=== PATIENT | male | born 1960 | race Caucasian/White ===

== ENCOUNTER → 2016-12-13 | Outpatient (CLI) | payer OTHER ==
[~2016-12-13] MED LIST: /CLON1TA PO; AMLO5TAB2 PO; ASPI81TA83 PO; COZA50TA18 PO; DIOVAN PO; GABA100C PO; IBUP80TA PO; METO50TA2 PO; OMEP20TA7 PO; OMEP40CA2 PO; PERC5TAB8 OR; SIMV20TA2 PO; SPORANOX PO; ULTR50TA PO
--- NOTE | 2016-12-13 13:16 | REP ---
LEFT ANKLE SERIES: Five views. HISTORY: Pain after injury. FINDINGS: Five views of the left ankle demonstrate an intact ankle mortise. No fracture or subluxation is seen. There is mild midfoot spurring. IMPRESSION: No fracture seen. Signed by J Luis Pozo MD 12/13/2016 02:55 P
--- NOTE | 2016-12-13 13:20 | REP ---
Left foot series: Four views. History: Pain. Findings: Four views of the left foot demonstrate no evidence of fracture or subluxation. No erosive changes seen. There are small foci of opaque debris projecting along the volar and lateral aspect of the soft tissues of the distal phalanx of the great toe either on the skin or just beneath it. This requires correlation clinically. No other change from comparison radiographs April 28, 2011. Impression: Negative left foot radiographs. There is some opaque debris superimposed on or just beneath the skin of the volar and lateral aspect of the distal phalanx of the great toe. Signed by J Luis Pozo MD 12/13/2016 02:56 P
--- NOTE | 2016-12-13 13:24 | REP ---
LEFT TIB/FIB SERIES: Four views. HISTORY: Pain in the left knee and lower leg after an injury. FINDINGS: Four views of the left tib/fib demonstrate patellar spurring. There is some dystrophic calcification in the posterolateral left calf. There is no evidence of fracture or periosteal reaction. IMPRESSION: No acute bony abnormality. Signed by J Luis Pozo MD 12/13/2016 02:56 P
--- NOTE | 2016-12-13 13:41 | REP ---
LEFT KNEE SERIES: Five views. HISTORY: Pain and injury. FINDINGS: Five views of the left knee demonstrate medial and patellofemoral spur formation. There is evidence of joint effusion. There is minimal spur formation laterally. There is no evidence of fracture. IMPRESSION: Three compartment osteoarthritic spurring mild in degree. Swelling in the suprapatellar bursa region consistent with a joint effusion. No fracture seen. Signed by J Luis Pozo MD 12/13/2016 02:57 P
== END ==
LOC: M LRY 12:06
PROVIDERS: ATTEND Nurse Practitioner Family
DX: S99.912A Unspecified injury of left ankle, initial encounter (principal); S89.92XA Unspecified injury of left lower leg, initial encounter; S90.452A Superficial foreign body, left great toe, initial encounter; M25.762 Osteophyte, left knee; X58.XXXA Exposure to other specified factors, initial encounter; Y92.9 Unspecified place or not applicable; Y93.9 Activity, unspecified; Y99.9 Unspecified external cause status

== ENCOUNTER → 2018-01-11 | Outpatient (CLI) | payer OTHER | LOC: M CARPUL 13:44 | DX: R91.8 Other nonspecific abnormal finding of lung field (principal); R06.02 Shortness of breath | CPT/HCPCS: 94060 ==

== ENCOUNTER 2018-06-27 06:12 | Day surgery (SDC) | payer OTHER ==
[~2018-06-27] VITALS: Ht 177.8 cm; Wt 93.9 kg
[~2018-06-27 06:12] MED LIST changes: +ALLO100T PO; +AMLO5TAB6 PO; +ASPI81TA85 PO; +GABA600T4 PO; +LOSA25TA14 PO; +LR 1,000 ML IV ONE; +NEUR600T PO; +OMEP10CASR PO; +OMEP20CA3 PO; +SM A1TAB PO; +VALS1TAB46 PO
[2018-06-27] MEDS ORDERED: BUPIVACAINE HCL 0.5% 10 ML VIAL As Ordered ONE (07:16)
[2018-06-27] MEDS ORDERED: LIDOCAINE 1% MDV 20ML VIAL As Ordered ONE (07:16)
[2018-06-27] MEDS ORDERED: ONDANSETRON 4MG/2ML VIAL (J2405) As Ordered ONE (07:50)
[2018-06-27] MEDS ORDERED: dexameTHASONE 4 MG/ML 1ML VIAL (J1100) As Ordered ONE ×2 (07:50→08:02)
[2018-06-27] MEDS ORDERED: LIDOCAINE 2% INJ 100 MG/5 ML SDV (FOR ANES.) As Ordered ONE (07:50)
[2018-06-27] MEDS ORDERED: PROPOFOL 200 MG/20 ML VIAL As Ordered ONE ×2 (07:50→09:11)
[2018-06-27] MEDS ORDERED: fentaNYL 100 MCG/2 ML INJECTION (J3010) As Ordered ONE (07:54)
[2018-06-27] MEDS ORDERED: MIDAZOLAM INJ 2 MG/2 ML VIAL (J2250) As Ordered ONE (07:57)
[2018-06-27] MEDS ORDERED: ePHEDrine SULFATE 25 MG/5 ML(5MG/ML) SYRINGE As Ordered ONE (07:59)
[2018-06-27] MEDS ORDERED: HYDR-3713 PO (09:26)
[2018-06-27 09:55] VITALS: BP 130/80
--- NOTE | 2018-06-27 10:03 | RO ---
DATE OF PROCEDURE: 06/27/2018 PREOPERATIVE DIAGNOSIS: Left plantar soft tissue mass. POSTOPERATIVE DIAGNOSIS: Left plantar soft tissue mass. PROCEDURE: Left foot plantar soft tissue mass excision with local flap closure. SURGEON: Crow Aguilar DPM FARM BOSS: None. ANESTHESIA: Monitored anesthesia care (MAC). Preop injection of 13 mL of 1:1 mixture of 1% lidocaine plain and 0.5% Marcaine plain. ESTIMATED BLOOD LOSS: Minimal. MATERIALS: #3-0 nylon. INJECTION: 1 mL of Decadron 4 mg/mL. SPECIMEN: Left foot cyst. COMPLICATIONS: None. CONDITION: Stable. Aayush Vines is a 58-year-old male who presents with plantar soft tissue mass of his left foot who presents today for surgical excision. The patient's site and side were identified and marked in the preop holding area. Consent was reviewed and obtained. All risks, complications and alternatives to the procedure were explained to the patient in detail and all questions were answered. PROCEDURE: The patient was brought to the operating room and placed on the operating room table in supine position. Monitored anesthesia care was delivered by the anesthesia team. Preoperative injection of 13 mL of 1:1 mixture of 1% lidocaine and 0.5% Marcaine plain were injected to the left foot. The left foot was prepped and draped in a normal sterile fashion. The patient received Ancef properatively. A tourniquet was applied to the let ankle and inflated to 250 mmHg. The cyst was located in the plantar aspect of the left arch, measured approximately 1 cm in diameter. An elliptical incision was made with approximately 2 mm margins surrounding this cyst. This was carried through with a 15 blade. The inferior portion of this cyst apparently had a stalk arising from the plantar fascia. This was excised with tenotomy scissors and the specimen was sent off for pathology identification. The site was irrigated with normal saline. No further cyst tissue was noted. Due to the size of the cyst and the rigidity of the plantar tissue, flap closure was necessary. A Z-style flap closure was performed, rotating local tissue for wound closure. This was performed with #3-0 nylon. Sterile dressing was applied. Tourniquet was deflated. The patient was brought to postanesthesia care unit (PACU) with vital signs stable and neurovascular status intact. He will be non-weightbearing. He will follow-up in the office in two days.
== END 2018-06-27 10:00 | disposition home or self-care (01) ==
LOC: M SDC 06:12
PROVIDERS: ATTEND Podiatrist Foot & Ankle Surgery
DX: D36.13 Benign neoplasm of peripheral nerves and autonomic nervous system of lower limb, including hip (principal); I10 Essential (primary) hypertension; I25.119 Atherosclerotic heart disease of native coronary artery with unspecified angina pectoris; J44.9 Chronic obstructive pulmonary disease, unspecified; E78.00 Pure hypercholesterolemia, unspecified; M10.9 Gout, unspecified; K52.9 Noninfective gastroenteritis and colitis, unspecified; K21.9 Gastro-esophageal reflux disease without esophagitis; M06.9 Rheumatoid arthritis, unspecified; R51 Headache; R06.02 Shortness of breath; T88.59XD Other complications of anesthesia, subsequent encounter; Z88.4 Allergy status to anesthetic agent; Z79.899 Other long term (current) drug therapy; Z86.2 Personal history of diseases of the blood and blood-forming organs and certain disorders involving the immune mechanism; Z87.891 Personal history of nicotine dependence
CPT/HCPCS: 14040; 28039; 88304; 88342; J0690; J1100; J2250; J2405

== ENCOUNTER 2022-05-17 02:40 | Emergency (ER) | payer OTHER ==
[~2022-05-17] VITALS: Ht 177.8 cm; Wt 94.1 kg
[2022-05-17 02:40] VITALS: BP 156/82
[~2022-05-17 02:40] MED LIST changes: -/CLON1TA PO; +AMLO1TAB24 PO; -AMLO5TAB6 PO; +ASPI-164 PO; -ASPI81TA85 PO; +ASPI81TA86 PO; +CLON-412 PO; +HYDR-3713 PO; +LOSA25TA13 PO; -LOSA25TA14 PO; -LR 1,000 ML IV ONE; +OMEP1CAP73 PO; -OMEP20CA3 PO; +SIMV20TA22 PO; -SM A1TAB PO; -VALS1TAB46 PO; +VALS1TAB66 PO
[2022-05-17 03:26] LABS: BASO # 0.1 10^3/uL (0.0-0.2); BASO % 1.2 % (0.0-1.0); EOS # 0.2 10^3/uL (0.0-0.5); HEMATOCRIT 48.3 % (42.0-52.0); HEMOGLOBIN 16.2 g/dl (13.5-17.5); LYMPH # 4.3 10^3/uL (1.5-5.0); LYMPH % 38.3 % (24.0-44.0); MEAN CORPUSCULAR HEMOGLOBIN 31.4 pg (27.0-33.0); MEAN CORPUSCULAR HGB CONC 33.5 g/dl (32.0-36.5); MEAN CORPUSCULAR VOLUME 93.6 fl (80.0-96.0); MONO # 1.4 10^3/uL (0.0-0.8); MONO % 12.8 % (2.0-8.0); NEUTROPHILS # 5.1 10^3/uL (1.5-8.5); NEUTROPHILS % 45.5 % (36.0-66.0); PLATELET COUNT, AUTOMATED 250 10^3/uL (150-450); RED BLOOD COUNT 5.16 10^6/uL (4.30-6.10); WHITE BLOOD COUNT 11.2 10^3/uL (4.0-10.0)
[2022-05-17 03:46] LABS: LIPASE 31 U/L (12-53)
[2022-05-17 03:48] LABS: ALBUMIN 3.9 G/DL (3.2-5.2); ALKALINE PHOSPHATASE 109 U/L (46-116); ALT/SGPT 144 U/L (7.0-40); AST/SGOT 72 U/L (<34); BILIRUBIN,DIRECT 0.2 MG/DL (<0.4); BILIRUBIN,TOTAL 0.7 MG/DL (0.3-1.2); BLOOD UREA NITROGEN 11 MG/DL (9-23); CALCIUM LEVEL 9.2 MG/DL (8.3-10.6); CARBON DIOXIDE LEVEL 25 MMOL/L (20-31); CHLORIDE LEVEL 106 MMOL/L (98-107); CREATININE FOR GFR 0.91 MG/DL (0.70-1.30); GLOMERULAR FILTRATION RATE > 60.0 (>49); GLUCOSE, FASTING 105 MG/DL (74-106); SODIUM LEVEL 140 MMOL/L (136-145); TOTAL PROTEIN 7.5 G/DL (5.7-8.2)
[2022-05-17] MEDS ORDERED: NS 500 ML IV ONE (07:15)
[2022-05-17] MEDS ORDERED: ISOVUE-370 76% 100ML VIAL As Ordered ONE (07:26)
[2022-05-17] MEDS ORDERED: KETOROLAC 30 MG/ML 1ML VIAL IV ONE (09:10)
[2022-05-17] MEDS ORDERED: NAPR-837 PO (09:35)
== END 2022-05-17 09:56 | disposition home or self-care (01) ==
LOC: M ED 02:40
DX: K76.0 Fatty (change of) liver, not elsewhere classified (principal); R10.10 Upper abdominal pain, unspecified; R16.0 Hepatomegaly, not elsewhere classified; I10 Essential (primary) hypertension; F32.A Depression, unspecified; Z87.891 Personal history of nicotine dependence; Z88.6 Allergy status to analgesic agent; Z79.811 Long term (current) use of aromatase inhibitors; Z79.899 Other long term (current) drug therapy

== ENCOUNTER → 2024-05-27 | Outpatient (CLI) | payer MEDICARE, OTHER ==
[~2024-05-27] MED LIST changes: +GABA-1490 PO; -GABA600T4 PO; +LIDOCAINE 1% MDV 20ML VIAL As Ordered ONE; +NAPR-837 PO
[2024-05-27 12:37] VITALS: BP 128/80; TEMP 97.8; O2SAT 94
== END ==
LOC: M IRPRO 12:00
PROVIDERS: ATTEND Otolaryngology
DX: R07.0 Pain in throat (principal); R22.1 Localized swelling, mass and lump, neck

== ENCOUNTER 2024-06-16 19:45 | Emergency (ER) | payer MEDICARE ==
[~2024-06-16] VITALS: Ht 177.8 cm; Wt 91.2 kg
[~2024-06-16 19:45] MED LIST changes: -LIDOCAINE 1% MDV 20ML VIAL As Ordered ONE
[2024-06-16 19:50] VITALS: BP 122/84; TEMP 97.5; O2SAT 96
[2024-06-16] MEDS ORDERED: LEVO50TA5 (20:00)
[2024-06-16 20:28] LABS: HEMATOCRIT 50.4 % (42.0-52.0); HEMOGLOBIN 17.4 g/dl (13.5-17.5); KETONE, URINE AUTO RFX NEGATIVE (NEGATIVE); LEUKOCYTE ESTERASE UR AUTO RFX NEGATIVE (NEGATIVE); MEAN CORPUSCULAR HEMOGLOBIN 31.2 pg (27.0-33.0); MEAN CORPUSCULAR HGB CONC 34.5 g/dl (32.0-36.5); MEAN CORPUSCULAR VOLUME 90.5 fl (80.0-96.0); MUCUS, URINE RFX SMALL (NEGATIVE); NITRITE, URINE AUTO RFX NEGATIVE (NEGATIVE); PLATELET COUNT, AUTOMATED 320 10^3/uL (150-450); RBC, URINE AUTO RFX 2 /HPF (0-3); RED BLOOD COUNT 5.57 10^6/uL (4.30-6.10); SQUAM EPITHELIAL CELL UR AURFX 0 /HPF (0-6); WBC, URINE AUTO RFX 3 /HPF (0-3); WHITE BLOOD COUNT 11.9 10^3/uL (4.0-10.0)
[2024-06-16 20:50] LABS: BASOPHILS 2 % (0-1); EOSINOPHILS 2 % (0-3); LYMPHOCYTES 31 % (16-44); MONOCYTES 4 % (0-5); NEUTROPHILS 61 % (28-66); PLATELET ESTIMATE NORMAL (NORMAL)
[2024-06-16 20:58] LABS: ALBUMIN 4.1 G/DL (3.2-5.2); ALKALINE PHOSPHATASE 116 U/L (40-129); ALT/SGPT 101 U/L (7.0-40); AST/SGOT 70 U/L (<34); BILIRUBIN,DIRECT 0.3 MG/DL (<0.4); BILIRUBIN,TOTAL 0.8 MG/DL (0.3-1.2); BLOOD UREA NITROGEN 11 MG/DL (9-23); CALCIUM LEVEL 10.4 MG/DL (8.3-10.6); CARBON DIOXIDE LEVEL 24 MMOL/L (20-31); CHLORIDE LEVEL 109 MMOL/L (98-107); CREATININE FOR GFR 0.88 MG/DL (0.70-1.30); GLOMERULAR FILTRATION RATE > 60.0 (>49); GLUCOSE, FASTING 93 MG/DL (74-106); SODIUM LEVEL 143 MMOL/L (136-145); TOTAL PROTEIN 8.1 G/DL (5.7-8.2)
[2024-06-17] MEDS ORDERED: AMLO1TAB25 (10:14)
[2024-06-17] MEDS ORDERED: COLA100C5 PO (14:20)
[2024-06-17] MEDS ORDERED: MIRA3350 PO (14:20)
== END 2024-06-16 23:45 | disposition left against medical advice (07) ==
LOC: M ED 19:45
DX: Z53.21 Procedure and treatment not carried out due to patient leaving prior to being seen by health care provider (principal)

== ENCOUNTER 2024-06-17 09:42 | Emergency (ER) | payer MEDICARE, MEDICAID ==
[~2024-06-17] VITALS: Ht 177.8 cm; Wt 89.6 kg
[~2024-06-17 09:42] MED LIST changes: +LEVO50TA5
[2024-06-17] MEDS ORDERED: AMLO1TAB25 (10:14)
[2024-06-17 12:06] LABS: BASO # 0.1 10^3/uL (0.0-0.2); BASO % 0.8 % (0.0-1.0); EOS # 0.1 10^3/uL (0.0-0.5); EOS % 1.1 % (0.0-3.0); HEMATOCRIT 51.2 % (42.0-52.0); HEMOGLOBIN 17.3 g/dl (13.5-17.5); LYMPH # 3.3 10^3/uL (1.5-5.0); LYMPH % 32.5 % (24.0-44.0); MEAN CORPUSCULAR HEMOGLOBIN 31.9 pg (27.0-33.0); MEAN CORPUSCULAR HGB CONC 33.8 g/dl (32.0-36.5); MEAN CORPUSCULAR VOLUME 94.5 fl (80.0-96.0); MONO # 0.8 10^3/uL (0.0-0.8); MONO % 8.3 % (2.0-8.0); NEUTROPHILS # 5.8 10^3/uL (1.5-8.5); NEUTROPHILS % 57.1 % (36.0-66.0); PLATELET COUNT, AUTOMATED 300 10^3/uL (150-450); RED BLOOD COUNT 5.42 10^6/uL (4.30-6.10); WHITE BLOOD COUNT 10.1 10^3/uL (4.0-10.0)
[2024-06-17 12:29] LABS: ALBUMIN 4.2 G/DL (3.2-5.2); BILIRUBIN,DIRECT 0.3 MG/DL (<0.4); TOTAL PROTEIN 8.4 G/DL (5.7-8.2)
[2024-06-17] MEDS ORDERED: ISOVUE-370 76% 100ML VIAL As Ordered ONE (13:01)
[2024-06-17] MEDS: KETOROLAC 30 MG/ML 1ML VIAL IV ONE (13:18)
[2024-06-17] MEDS ORDERED: COLA100C5 PO (14:20)
[2024-06-17] MEDS ORDERED: MIRA3350 PO (14:20)
[2024-06-17 14:28] VITALS: BP 134/78; TEMP 97.6; O2SAT 96
== END 2024-06-17 14:49 | disposition home or self-care (01) ==
LOC: M ED 09:42
DX: K59.00 Constipation, unspecified (principal); I10 Essential (primary) hypertension; K44.9 Diaphragmatic hernia without obstruction or gangrene; J44.9 Chronic obstructive pulmonary disease, unspecified; K76.0 Fatty (change of) liver, not elsewhere classified; K21.9 Gastro-esophageal reflux disease without esophagitis; Z86.19 Personal history of other infectious and parasitic diseases; Z98.61 Coronary angioplasty status; F17.220 Nicotine dependence, chewing tobacco, uncomplicated; Z79.899 Other long term (current) drug therapy; Z88.5 Allergy status to narcotic agent
CPT/HCPCS: 74177; 80047; 80076; 83690; 85025; 96374; 99284; J1885; Q9967